=== PATIENT | male | born 1965 | race Caucasian/White ===

== ENCOUNTER 2017-03-24 13:54 | Emergency (ER) | payer OTHER ==
--- NOTE | ~2017-03-24 | ER ---
PATIENT'S NAME: VERONICA OLSON [facility] AGE: 51 Y [address] ROOM: [place] [id number] LOCATION: [facility] ADMIT DATE: 03/24/2017 ER/Outpatient Report DISCHARGE DATE: 03/24/2017 FAMILY PHYSICIAN: Xavier Fu MD ATTENDING PHYSICIAN: Ezio Chua CHIEF COMPLAINT: Left forearm laceration. Time of patient arrival: 13:54. Time of patient evaluation: 14:05. HISTORY OF PRESENT ILLNESS: This is a 51-year-old male, who presents to ER with a left forearm laceration that happened just prior to arrival. The patient states that he was working on his garage door when a piece of it came down and hit him in the forearm causing the laceration. He states he is up-to-date on his tetanus shot, and he denies any other problems at this time. ALLERGIES: NO KNOWN ALLERGIES. MEDICATIONS: None. PAST MEDICAL HISTORY: He has a history of 1. Rapid heart rate. 2. Hernia repair. 3. Vasectomy. SOCIAL HISTORY: He drinks alcohol socially. He denies any smoking use. REVIEW OF SYSTEMS: CONSTITUTIONAL: He denies any change in weight or fatigue. MUSCULOSKELETAL: No weakness or myalgias. HEMATOLOGIC: No easy bruising or bleeding. SKIN: He has a laceration to his left forearm. PHYSICAL EXAMINATION: VITAL SIGNS: Height is 6 feet 2 inches stated and weight is 122 kg taken. Blood pressure was 157/100, pulse was 81, respirations were 16, temperature was 97.5 degrees tympanically, and saturations were 95% on room air. Rach PATIENT'S NAME: VERONICA OLSON [facility] AGE: 51 Y [address] ROOM: [place] [address] LOCATION: [facility] ADMIT DATE: 03/24/2017 ER/Outpatient Report DISCHARGE DATE: 03/24/2017 FAMILY PHYSICIAN: Xavier Fu MD ATTENDING PHYSICIAN: Ezio Chua Coma Score is 15. GENERAL: Alert, calm, and obese male, in no acute distress. EXTREMITIES: No clubbing or cyanosis. He has full range of motion of all limbs. NEUROLOGIC: Cranial nerves II through XII were grossly intact. Gait is steady without assistance. SKIN: He has a 3.5-cm laceration noted to the left forearm and is not actively bleeding at this time. LABORATORY DATA AND X-RAYS: None were done. IMPRESSION: A 3.5 cm left forearm laceration. ASSESSMENT AND PLAN: I did cleanse the site with Betadine and numbed it with 1% lidocaine with epinephrine. I cleansed the site thoroughly with normal saline, and repaired the laceration using 4-0 Ethilon. The patient did tolerate this well. I did place antibiotic ointment and nonadhesive dressing to the wound, and the patient did tolerate all this well. We will dismiss the patient home with a wound care handout. He may take Tylenol as needed, and he should have the sutures removed in 7 to 10 days. The patient understands and agrees with care. KAELYN TOBAR PA-C FOR DO LISANDRA TRUONG/racheal /[id number] d: 03/24/17 2233 t: 03/30/17 0659, OUTPATIENT REPORT
== END 2017-03-24 14:33 | disposition disaster alternative care site (69) ==
LOC: GACC 13:54
PROC: 0HQEXZZ Repair Left Lower Arm Skin, External Approach (ICD-10-PCS; principal; 2017-03-24)
DX: S51.812A Laceration without foreign body of left forearm, initial encounter (principal); W20.8XXA Other cause of strike by thrown, projected or falling object, initial encounter; Y92.59 Other trade areas as the place of occurrence of the external cause; Y99.0 Civilian activity done for income or pay